=== PATIENT | female | born 1935 | race Asian ===

== ENCOUNTER 2019-12-01 21:26 | Emergency (ER) | payer OTHER ==
[~2019-12-01] VITALS: Ht 165.1 cm; Wt 51.3 kg
[2019-12-01 21:26] VITALS: BP 155/83; TEMP 98
[2019-12-01 22:04] LABS: PLATELET COUNT 311 K/uL (152-353)
[2019-12-01 22:10] LABS: POTASSIUM 3.8 mmol/L (3.6-5.2)
[2019-12-01] MEDS ORDERED: PANTOPRAZOLE SO40 M2 PO (23:21)
[2019-12-01] MEDS ORDERED: TIROSINT100 MCG PO (23:21)
[2019-12-01] MEDS ORDERED: MEGESTROL AC40 MG/ML PO (23:25)
[2019-12-01] MEDS ORDERED: POLY GLYCOL3350 M1 PO (23:30)
[2019-12-01] MEDS ORDERED: DOCU SOFT100 MG PO (23:31)
[2019-12-01] MEDS ORDERED: CVS SENNA8.6 MG PO (23:31)
[2019-12-01] MEDS ORDERED: CLARITIN10 MG PO (23:31)
[2019-12-01] MEDS ORDERED: ISOSOURCE (23:34)
[2019-12-01] MEDS ORDERED: BOOST PLUS (23:35)
[2019-12-01] MEDS ORDERED: FLONASE AL50 MCG/ACT INH (23:36)
[2019-12-01] MEDS ORDERED: TRAM50TA PO (23:37)
== END 2019-12-01 22:52 | disposition other institution (70) ==
LOC: ED 21:26
PROVIDERS: Emergency Medicine
DX: F03.91 Unspecified dementia, unspecified severity, with behavioral disturbance (principal); Z03.818 Encounter for observation for suspected exposure to other biological agents ruled out; Z04.6 Encounter for general psychiatric examination, requested by authority
CPT/HCPCS: 80053; 85027; 87635; 93005; 99283; J1630; J2060; U0002